=== PATIENT | female | born 1950 | race American Indian/Alaskan Native ===

== ENCOUNTER 2017-05-01 11:17 | Outpatient (CLI) | payer MEDICARE ==
--- NOTE | 2017-05-01 12:33 | Mammography Report ---
BILATERAL DIGITAL DIAGNOSTIC MAMMOGRAM WITH CAD : 05/01/17 11:17:00 CLINICAL: Breast cancer survivor status post left partial mastectomy and radiation therapy for breast cancer. Status post right benign MRI biopsy. COMPARISON:04/28/16 FINDINGS: The breasts are heterogeneously dense, which may obscures small masses. The left breast is smaller than the right stable postsurgical scar and skin thickening. A right inner biopsy clip is unchanged since the prior exam. There is a new left biopsy clip at 6 to 7 o'clock. No mass, s architectural distortion or suspicious calcifications. IMPRESSION: No mammographic evidence of malignancy. BI-RADS CATEGORY: 2 -- Benign RECOMMENDATION: Bilateral mammogram in one year. COMMENT: Patient follow-up letters are generated via our [employer] application.
== END 2017-05-01 11:18 | disposition home or self-care (01) ==
LOC: SPVWC 11:17
PROVIDERS: ATTEND Internal Medicine Hematology
DX: R92.8 Other abnormal and inconclusive findings on diagnostic imaging of breast (principal); Z85.3 Personal history of malignant neoplasm of breast; Z90.12 Acquired absence of left breast and nipple
CPT/HCPCS: 77066; G0204

== ENCOUNTER 2017-12-07 10:22 | Outpatient (CLI) | payer MEDICARE | END 2017-12-07 10:23 | disposition home or self-care (01) | LOC: LABHHL 10:22 | PROVIDERS: ATTEND Surgery | DX: N63.20 Unspecified lump in the left breast, unspecified quadrant (principal) | CPT/HCPCS: 88305 ==

== ENCOUNTER 2018-01-04 08:39 | Outpatient (CLI) | payer MEDICARE ==
--- NOTE | 2018-01-04 13:19 | Cat Scan Report ---
CT CHEST WITH CONTRAST: 01/04/18 08:39:00 CLINICAL: Abnormal chest x-ray. Breast cancer survivor status post left partial mastectomy. Comparison: CT Chest 11/27/13. TECHNIQUE: Volumetric acquisition and 1.25 mm scan reconstructions after the uneventful intravenous injection of 100cc Omnipaque 300. Consent was obtained prior to the administration of contrast. FINDINGS: Mild volume loss and reticular interstitial opacities involving the lateral segment of the right middle lobe which are new compared to the previous exam. These interstitial opacities extend from the hilum to the pleura. No pulmonary nodule or mass. However, several new small right hilar lymph nodes are identified and measure 0.9 x 0.9 cm, 1.7 x 1.0 cm and 1.9 x 0.7 cm. A few tiny calcifications are identified in the lymph nodes. No mediastinal lymphadenopathy. Normal heart, aorta and pulmonary arteries. No pleural effusion. The thyroid is not included on the exam. A biopsy clip in the left breast and an associated mass correlates with a recent benign needle biopsy. Normal trachea and esophagus. No axillary or supraclavicular lymphadenopathy. Surgical clips in the left axilla.The upper abdomen is unremarkable. No suspicious bone lesion . IMPRESSION: New mild right hilar lymphadenopathy along with new right lung reticular interstitial opacities involving the lateral segment of the right middle lobe. Granulomatous disease is the prime consideration. Recommend followup CT with contrast in 3 - 6 months.
== END 2018-01-04 08:40 | disposition home or self-care (01) ==
LOC: SPVIMAG 08:39
PROVIDERS: ATTEND Internal Medicine
DX: D71 Functional disorders of polymorphonuclear neutrophils (principal); R59.1 Generalized enlarged lymph nodes; R93.8 Abnormal findings on diagnostic imaging of other specified body structures; K21.9 Gastro-esophageal reflux disease without esophagitis; Z90.12 Acquired absence of left breast and nipple
CPT/HCPCS: 71260; Q9967

== ENCOUNTER 2018-06-25 07:20 | Outpatient (CLI) | payer MEDICARE ==
--- NOTE | 2018-06-25 10:08 | Cat Scan Report ---
CT CHEST WITH CONTRAST: HISTORY: Localized enlarged lymph nodes. COMPARISON: . TECHNIQUE: Helical CT in 1.25mm intervals following IV contrast. Sagittal and coronal reformatted images. FINDINGS: Thyroid gland: Not included. Tracheobronchial tree: Normal. Esophagus: Normal. Heart: Normal. Pericardium: Normal. Mediastinum: The previously described borderline to mildly enlarged right hilar lymph nodes have resolved. No thoracic adenopathy is detected on today's exam. Lung Godinez: The previously described subtle infiltration in the right middle lobe has resolved. The lungs are clear and within normal limits. Pleural Spaces: Normal. Musculoskeletal: Intact. Mild thoracic spondylosis. IMPRESSION: Unremarkable CT chest with contrast.
== END 2018-06-25 07:21 | disposition home or self-care (01) ==
LOC: CT 07:20
PROVIDERS: ATTEND Internal Medicine
DX: R59.0 Localized enlarged lymph nodes (principal); K21.9 Gastro-esophageal reflux disease without esophagitis; M19.90 Unspecified osteoarthritis, unspecified site
CPT/HCPCS: 36415; 71260; 82565; 84520; Q9967

== ENCOUNTER 2021-10-20 08:38 | Day surgery (SDC) | payer MEDICARE, OTHER ==
[2021-10-20] MEDS ORDERED: BUPIVACAINE/PF (0.25%) 2.5 MG/ML 30 ML VIAL INFILTRATI ONE (10:02)
[2021-10-20] MEDS ORDERED: LIDOCAINE (1%) 10 MG/1 ML VIAL 20 ML MDV INFILTRATI ONE (10:03)
[2021-10-20 12:12] VITALS: BP 157/66
--- NOTE | 2021-10-20 12:33 | Operative Report ---
Operative Report Operative Report: Date: 10/20/2021 Preop diagnosis: Sebaceous cyst left breast Postop diagnosis: Same Procedure: Excision of sebaceous cyst left breast Surgeon: Dr. Daily Anesthesia: Local Estimated blood loss: Minimal Specimen: Sebaceous cyst Procedure: Patient is taken to the OR and timeouts are completed and consent is on the chart. The area of concern is marked with a marker preoperatively and is prepped with ChloraPrep. 1% lidocaine and half percent Marcaine is used to infiltrate the area with local anesthetic. 15. Scalpel was used to make a transverse elliptical incision. Electrocautery was used to dissect the cyst completely. Electrocautery was used for hemostasis. 3-0 Vicryl was used to close the subcutaneous tissue. 4-0 Monocryl was used to close the skin. Dermabond was used for dressing. Patient tolerated procedure well discharged in good condition.
== END 2021-10-20 08:39 | disposition home or self-care (01) ==
LOC: OR 08:38
PROVIDERS: ATTEND Surgery
DX: N60.82 Other benign mammary dysplasias of left breast (principal); N60.12 Diffuse cystic mastopathy of left breast; D24.2 Benign neoplasm of left breast; I10 Essential (primary) hypertension; E78.00 Pure hypercholesterolemia, unspecified; J45.909 Unspecified asthma, uncomplicated; K21.9 Gastro-esophageal reflux disease without esophagitis; E03.9 Hypothyroidism, unspecified; F41.9 Anxiety disorder, unspecified; F32.9 Major depressive disorder, single episode, unspecified; Z79.899 Other long term (current) drug therapy; Z90.49 Acquired absence of other specified parts of digestive tract; Z98.890 Other specified postprocedural states; Z88.0 Allergy status to penicillin; Z88.8 Allergy status to other drugs, medicaments and biological substances; Z85.3 Personal history of malignant neoplasm of breast
CPT/HCPCS: 19120; 88305; 88341; 88342; J3490; 88304